=== PATIENT | female | born 1955 | race Two or more races ===

== ENCOUNTER 2025-02-04 12:05 | Outpatient (CLI) | payer OTHER | END 2025-02-04 12:10 | disposition home or self-care (01) | LOC: RAD 12:05 | PROVIDERS: ATTEND Orthopaedic Surgery | DX: M25.551 Pain in right hip (principal); M25.552 Pain in left hip ==

== ENCOUNTER 2025-02-06 10:57 | Outpatient (CLI) | payer OTHER | END 2025-02-06 11:02 | disposition home or self-care (01) | LOC: MRI 10:57 | PROVIDERS: ATTEND Orthopaedic Surgery | DX: M54.50 Low back pain, unspecified (principal) | CPT/HCPCS: 72148 ==